=== PATIENT | male | born 1975 | race Caucasian/White ===

== ENCOUNTER 2020-02-02 08:14 | Day surgery (SDC) | payer BC ==
[~2020-02-02 08:14] MED LIST: Dextrose 5%-Lactated Ringers 1,000 ML IV SCH; Midazolam 1 MG/ML 2 ML SDV ONE; Propofol 200 MG/20 ML SDV ONE; fentaNYL 100 MCG/2 ML SDV ONE
[2020-02-02] MEDS ORDERED: Glycopyrrolate 0.2 MG/ML 2 ML SDV IVPUSH ONE (09:30)
[2020-02-02] MEDS ORDERED: Iopamidol 612 MG/ML 500 ML Multipack Bottle IV ONE (12:48)
[2020-02-02] MEDS ORDERED: Iopamidol 612 MG/ML 50 ML SDV PO ONE (12:48)
[2020-02-02] MEDS ORDERED: Sodium Chloride 0.9% 71 ML IV ONE (13:00)
[2020-02-02] MEDS: Sodium Chloride 0.9% 10 ML Syringe FLUSH ONE (14:57)
--- NOTE | 2020-02-02 16:15 | CT ---
Abdomen Pelvis w Cont CLINICAL HISTORY: Weight loss COMPARISON: None. TECHNIQUE: Axial tomographic images are obtained from the dome of the diaphragm to the pubic symphysis with IV contrast enhancement. Oral contrast was used. Auto dosage reduction and iterative reconstruction techniques employed. FINDINGS: The lung bases are clear. The liver shows no mass or biliary dilatation. The gallbladder has a normal contour. The spleen has a normal size and shape. The pancreas shows no mass or inflammatory change. The adrenal glands appear normal bilaterally. The kidneys contain some subcentimeter cysts bilaterally. There is no stones or hydronephrosis. The ureters have a normal course and contour. Bladder has a normal contour. The aorta has a normal contour. There is no suspicious retroperitoneal adenopathy. The small intestinal configuration is nonacute. There is some mild dilatation of the proximal transverse duodenum. There is some narrowing in AP diameter as it crosses the aorta behind the SMA. SMA has a relatively closed angle in its descent. IMPRESSION: No acute intra-abdominal findings Mild dilatation of the proximal transverse duodenum. It narrows as it traverses the aorta and SMA. 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
--- NOTE | 2020-02-09 09:27 | OR ---
DATE OF PROCEDURE: 02/02/2020 SURGEON: Luis Alberto Hernandez MD PREOPERATIVE DIAGNOSIS: Upper abdominal discomfort with unexplained weight loss. POSTOPERATIVE DIAGNOSIS: Upper GI endoscopy showing essentially normal examination. OPERATIVE PROCEDURE: Esophagogastroduodenoscopy with: 1. Biopsies of antrum for CLOtest. 2. Biopsies of duodenum to rule out celiac disease. INDICATIONS: This is a 44-year-old male, presenting with some unexplained weight loss along with some discomfort in the postprandial period in the upper abdomen and he is on low dose Pepcid. Plan is to proceed with upper GI endoscopy with biopsies as indicated and duodenal biopsies to rule out celiac disease. Potential risks including bleeding and perforation were discussed, and the patient wishes to proceed. DETAILS OF PROCEDURE: The patient was taken to the operating room, placed in a left lateral decubitus position. IV sedation was administered, after which an upper GI endoscope was passed orally through the length of the esophagus and into the stomach with retroflexion view of the fundus, and into the junction of the third and fourth portions of the duodenum. Findings essentially were entirely normal. There was no significant inflammation in the esophagus, EG junction area, and no hiatal hernia was noted. Within the stomach, no significant inflammation or other abnormalities were noted. In the pyloric channel, duodenum to the junction of the 3rd and 4th portions were likewise unremarkable. At this point, multiple biopsies were obtained from the duodenum and sent for histologic evaluation, and following this, biopsies were obtained from the antrum and sent for CLOtest to assess the patient's H pylori status. Procedure was then concluded. The patient was taken to the recovery room in satisfactory condition. Given the patient's lack of upper GI findings, we obtained a CT scan of the abdomen. Primary finding was that a narrow AP diameter between the aorta and superior mesenteric artery at the point where the duodenum crossed those structures and there was some dilation of the duodenum proximal to that narrowing and an obvious of the area of considerable narrowing of the duodenum at the point where the aorta and superior mesenteric artery overlaid the duodenum. This was subsequently discussed with the patient and we will obtain an upper GI x-ray in order to try and see to what extent this appeared to be physiologically a problem, and we will see him back after that has been completed. Luis Alberto Hernandez MD /[id number]
== END 2020-02-02 15:05 | disposition home or self-care (01) ==
LOC: JP.SDS 08:14
PROVIDERS: ATTEND Surgery
DX: R10.9 Unspecified abdominal pain (principal); R63.4 Abnormal weight loss; Z68.23 Body mass index [BMI] 23.0-23.9, adult
CPT/HCPCS: 43239; 74177; 87081; J2250; J2704; J3010; J3490; J7121; Q9967; 88305

== ENCOUNTER 2023-02-14 15:45 | Emergency (ER) | payer OTHER, BC ==
[2023-02-14] MEDS ORDERED: Bacitracin Oint 1 GM U/D Packet TOP ONE (16:31)
== END 2023-02-14 16:52 | disposition home or self-care (01) ==
LOC: JP.ED 15:45
DX: S61.215A Laceration without foreign body of left ring finger without damage to nail, initial encounter (principal); K21.9 Gastro-esophageal reflux disease without esophagitis; Z79.899 Other long term (current) drug therapy; W23.1XXA Caught, crushed, jammed, or pinched between stationary objects, initial encounter
CPT/HCPCS: 99282